=== PATIENT | male | born 1960 | race Two or more races ===

== ENCOUNTER 2024-09-08 10:10 | Day surgery (SDC) | payer OTHER, SELFPAY ==
[2024-09-07 15:44] VITALS: BMI 29.9
[2024-09-08] VITALS (9 sets, daily range): BP systolic 108–156; BP diastolic 76–95; PULSE 53–61; RESP 11–18; TEMP 36.2–36.3; O2SAT 94–98; BMI 29.6
[2024-09-08] MEDS: SODIUM CHLORIDE 0.9% 500 ML 500 ML 20 ML IV (11:00)
[2024-09-08] MEDS: DiphenhydrAMINE INJ 50 MG/ML VIAL 25 MG IV (11:46)
[2024-09-08] MEDS: fentaNYL CIT INJ 50 mCg/ML AMP 2ML (ASD USE ONLY) IV (11:49)
[2024-09-08] MEDS: MIDAZOLAM INJ 1 MG/ML VIAL 2 ML (ASD USE ONLY) 2 MG IV (11:49)
== END 2024-09-08 12:55 | disposition home or self-care (01) ==
PROVIDERS: PCP Physician Assistant; Referring Provider Specialist; Visit Provider Specialist
PROC: 0DBE8ZX Excision of Large Intestine, Via Natural or Artificial Opening Endoscopic, Diagnostic (ICD-10-PCS; CPT 45380; principal; 2024-09-08 11:45)
DX: D12.8 Benign neoplasm of rectum (principal); K64.9 Unspecified hemorrhoids; K57.30 Diverticulosis of large intestine without perforation or abscess without bleeding; I10 Essential (primary) hypertension; E78.5 Hyperlipidemia, unspecified; Z86.0101 Personal history of adenomatous and serrated colon polyps; Z79.899 Other long term (current) drug therapy
CPT/HCPCS: 45384; J1200; J2250; J3010; J7040